=== PATIENT | male | born 1980 | race Caucasian/White ===

== ENCOUNTER 2018-01-29 18:06 | Emergency (ER) | payer BC ==
[2018-01-29] MEDS ORDERED: ASPIRIN 81 MG CHEWABLE TABLET PO ONE (18:31)
[2018-01-29] MEDS ORDERED: MAGNESIUM HYDROXIDE/AL HYDROX 30 ML, LIDOCAINE VISC 2% 15ML 15 ML PO ONE ×2 (18:31)
--- NOTE | 2018-01-29 18:33 | Emergency Department Record ---
History of Present Illness - General Chief Complaint: Chest Pain Stated Complaint: CHEST PAIN/TIGHTNESS Time Seen by Provider: 01/29/18 18:19 Source: Patient, RN notes reviewed Mode of Arrival: Ambulatory - History of Present Illness Initial Comments: chest pressure and bloating feeling and he had similiar episode last night and he took zantac and that helped last night . 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 seen alot of people and concerned about his symptoms and he drank 2 microbrew beers last night MD Complaint: Chest pain Pain Location: Substernal, Left chest, Right chest Pain Radiation: Back Severity: Moderate Severity scale (1-10): 6 Quality: Sharp Consistency: Intermittent Improves With: Nothing Worsens With: Nothing Treatments Prior to Arrival: None - Related Data Home Medications Medication Instructions Recorded Confirmed Last Taken Ranitidine HCl [Zantac] 150 mg PO DAILY 01/29/18 01/29/18 01/29/18 Allergies Allergy/AdvReac Type Severity Reaction Status Date / Time No Known Drug Allergies Allergy Verified 01/29/18 18:16 Travel Screening - Travel/Exposure Within Last 30 Days Have you traveled within the last 30 days?: No Review of Systems Reviewed: No additional complaints except as noted below Constitutional: Reports: As per HPI. Denies: Chills, Fever, Malaise, Night sweats, Weakness, Weight change Eyes: Reports: As per HPI. Denies: Eye discharge, Eye pain, Photophobia, Vision change ENT: Reports: As per HPI. Denies: Congestion, Dental pain, Ear pain, Epistaxis , Hearing loss, Throat pain Respiratory: Reports: As per HPI, Dyspnea. Denies: Cough, Hemoptysis, Stridor, Wheezes Cardiovascular: Reports: As per HPI, Chest pain. Denies: Arrhythmia, Dyspnea on exertion, Edema, Murmurs, Orthopnea, Palpitations, Paroxysmal nocturnal dyspnea, Rheumatic Fever, Syncope Endocrine: Reports: As per HPI. Denies: Fatigue, Heat or cold intolerance, Polydipsia, Polyuria Gastrointestinal: Reports: As per HPI. Denies: Abdominal pain, Constipation, Diarrhea, Hematemesis, Hematochezia, Melena, Nausea, Vomiting Genitourinary: Reports: As per HPI. Denies: Dysuria, Frequency, Hematuria, Incontinence, Retention, Testicular pain, Testicular mass, Urgency Musculoskeletal: Reports: As per HPI. Denies: Arthralgia, Back pain, Gout, Joint swelling, Myalgia, Neck pain Skin: Reports: As per HPI. Denies: Bruising, Change in color, Change in hair/ nails, Lesions, Pruritus, Rash Neurological: Reports: As per HPI. Denies: Abnormal gait, Confusion, Headache, Numbness, Paresthesias, Seizure, Tingling, Tremors, Vertigo, Weakness Psychiatric: Reports: As per HPI. Denies: Anxiety, Auditory hallucinations, Depression, Homicidal thoughts, Suicidal thoughts, Visual hallucinations Hematological/Lymphatic: Reports: As per HPI. Denies: Anemia, Blood Clots, Easy bleeding, Easy bruising, Swollen glands Past Medical History - SOCIAL HISTORY Smoking Status: Never smoker Alcohol Use: Occasional Drug Use: None - RESPIRATORY Hx Respiratory Disorders: No - CARDIOVASCULAR Hx Cardio Disorders: No - NEURO Hx Neuro Disorders: No - GI Hx GI Disorders: Yes Hx Reflux: Yes - Hx Genitourinary Disorders: No - ENDOCRINE Hx Endocrine Disorders: No - MUSCULOSKELETAL Hx Musculoskeletal Disorders: No - PSYCH Hx Psych Problems: No - HEMATOLOGY/ONCOLOGY Hx Hematology/Oncology Disorders: No Family Medical History Any Significant Family History?: No Physical Exam - General General Appearance: Alert, Oriented x3, Cooperative, Mild distress - Head Head exam: Normal inspection - Eye Eye exam: Normal appearance, PERRL Pupils: Normal accommodation - ENT ENT exam: Normal exam, Mucous membranes moist, Normal external ear exam, Normal orophraynx, TM's normal bilaterally Ear exam: Normal external inspection. negative: External canal tenderness Nasal Exam: Normal inspection. negative: Discharge, Sinus tenderness Mouth exam: Normal external inspection, Tongue normal Teeth exam: Normal inspection. negative: Dental caries Throat exam: Normal inspection. negative: Tonsillar erythema, Tonsillar exudate - Neck Neck exam: Normal inspection, Full ROM. negative: Tenderness - Respiratory Respiratory exam: Normal lung sounds bilaterally. negative: Respiratory distress - Cardiovascular Cardiovascular Exam: Regular rate, Normal rhythm, Normal heart sounds - GI/Abdominal GI/Abdominal exam: Soft, Normal bowel sounds. negative: Tenderness - Rectal Rectal exam: Deferred - exam: Deferred - Extremities Extremities exam: Normal inspection, Full ROM, Normal capillary refill. negative: Tenderness - Back Back exam: Reports: Normal inspection, Full ROM. Denies: Muscle spasm, Rash noted, Tenderness - Neurological Neurological exam: Alert, Normal gait, Oriented X3, Reflexes normal - Psychiatric Psychiatric exam: Normal affect, Normal mood - Skin Skin exam: Dry, Intact, Normal color, Warm Course Vital Signs 01/29/18 18:11 Temperature 97.8 F Pulse Rate 66 Respiratory 22 Rate Blood Pressure 177/116 Pulse Ox 100 - Reevaluation(s) Reevaluation #1: Turning over to Dr. Levin at 7 pm, labs and chest xray pending 01/29/18 18:53 01/29/18 19:06 Medical Decision Making - Data Complexity MDM Data: EKG Ordered and/or Reviewed (NSR, no acute changes) - Lab Data Result diagrams: 01/29/18 18:20 01/29/18 18:20 Disposition Clinical Impression: Chest pain Qualifiers: Chest pain type: unspecified Qualified Code(s): R07.9 - Chest pain, unspecified GERD (gastroesophageal reflux disease) Qualifiers: Esophagitis presence: without esophagitis Qualified Code(s): K21.9 - Gastro- esophageal reflux disease without esophagitis Forms: Patient Portal Access Quality - Quality Measures Quality Measures: N/A - Blood Pressure Screening Does Patient Have Any of the Following: No Blood Pressure Classification: Hypertensive Reading Systolic Measurement: 177 Diastolic Measurement: 116 Screening for High Blood Pressure: < First Hypertensive BP, F/U Documented > [ G8950] First Hypertensive Follow-up Interventions: Referral to alternative/primary care provider.
[2018-01-29] MEDS ORDERED: LORAZEPAM 2 MG/ML VIAL IV ONE (18:39)
[2018-01-29 18:41] LABS: BASO % 0.7 % (0-6); EOS % 2.5 % (0-6); GRAN % 38.7 % (47-80); HEMATOCRIT 43.3 % (42.0-52.0); HEMOGLOBIN 14.1 gm/dl (14.0-18.0); MEAN CELL VOLUME 88.5 fl (81-97); MEAN CORPUSCULAR HEMOGLOBIN 28.8 pg (27-33); MEAN CORPUSCULAR HGB CONC 32.6 g/dl (32-36); MEAN PLATELET VOLUME 10.6 fl (7.4-10.4); MONO % 12.1 % (0-9); PLATELET COUNT 314 K/uL (130-400); RED BLOOD COUNT 4.89 M/uL (4.40-5.70); RED CELL DISTRIBUTION WIDTH 13.8 % (11.5-14.5); WHITE BLOOD COUNT W/O DIFF 10.8 K/uL (4.2-12.2)
[2018-01-29 18:53] LABS: BLOOD UREA NITROGEN 14 mg/dL (6-20); CREATININE 0.9 mg/dL (0.7-1.2); EST GLOMERULAR FILTRATION RATE > 60 mL/min
[2018-01-29 18:56] LABS: GLUCOSE,RANDOM 105 mg/dL (74-109)
[2018-01-29 19:13] LABS: PARTIAL THROMBOPLASTIN TIME 25.5 SECONDS (24.5-39.1)
--- NOTE | 2018-01-29 19:43 | Emergency Department Record ---
History of Present Illness - General Chief Complaint: Chest Pain Stated Complaint: CHEST PAIN/TIGHTNESS Time Seen by Provider: 01/29/18 18:19 Source: Patient, RN notes reviewed Mode of Arrival: Ambulatory - History of Present Illness Initial Comments: Assumed care at 7 p.m. shift change due to pending labs. Patient states his pain is not 5/10 after his medications of ativan and GI cocktail. Pain Location: Substernal, Left chest, Right chest Pain Radiation: Back Severity: Moderate Severity scale (1-10): 6 Quality: Sharp Consistency: Intermittent Improves With: Nothing Worsens With: Nothing Treatments Prior to Arrival: None - Related Data Home Medications Medication Instructions Recorded Confirmed Last Taken Ranitidine HCl [Zantac] 150 mg PO DAILY 01/29/18 01/29/18 01/29/18 Allergies Allergy/AdvReac Type Severity Reaction Status Date / Time No Known Drug Allergies Allergy Verified 01/29/18 18:16 Travel Screening - Travel/Exposure Within Last 30 Days Have you traveled within the last 30 days?: No Review of Systems Reviewed: No additional complaints except as noted below Constitutional: Reports: As per HPI. Denies: Chills, Fever, Malaise, Night sweats, Weakness, Weight change Eyes: Reports: As per HPI. Denies: Eye discharge, Eye pain, Photophobia, Vision change ENT: Reports: As per HPI. Denies: Congestion, Dental pain, Ear pain, Epistaxis , Hearing loss, Throat pain Respiratory: Reports: As per HPI, Dyspnea. Denies: Cough, Hemoptysis, Stridor, Wheezes Cardiovascular: Reports: As per HPI, Chest pain. Denies: Arrhythmia, Dyspnea on exertion, Edema, Murmurs, Orthopnea, Palpitations, Paroxysmal nocturnal dyspnea, Rheumatic Fever, Syncope Endocrine: Reports: As per HPI. Denies: Fatigue, Heat or cold intolerance, Polydipsia, Polyuria Gastrointestinal: Reports: As per HPI. Denies: Abdominal pain, Constipation, Diarrhea, Hematemesis, Hematochezia, Melena, Nausea, Vomiting Genitourinary: Reports: As per HPI. Denies: Dysuria, Frequency, Hematuria, Incontinence, Retention, Testicular pain, Testicular mass, Urgency Musculoskeletal: Reports: As per HPI. Denies: Arthralgia, Back pain, Gout, Joint swelling, Myalgia, Neck pain Skin: Reports: As per HPI. Denies: Bruising, Change in color, Change in hair/ nails, Lesions, Pruritus, Rash Neurological: Reports: As per HPI. Denies: Abnormal gait, Confusion, Headache, Numbness, Paresthesias, Seizure, Tingling, Tremors, Vertigo, Weakness Psychiatric: Reports: As per HPI. Denies: Anxiety, Auditory hallucinations, Depression, Homicidal thoughts, Suicidal thoughts, Visual hallucinations Hematological/Lymphatic: Reports: As per HPI. Denies: Anemia, Blood Clots, Easy bleeding, Easy bruising, Swollen glands Past Medical History - SOCIAL HISTORY Smoking Status: Never smoker Alcohol Use: Occasional Drug Use: None - RESPIRATORY Hx Respiratory Disorders: No - CARDIOVASCULAR Hx Cardio Disorders: No - NEURO Hx Neuro Disorders: No - GI Hx GI Disorders: Yes Hx Reflux: Yes - Hx Genitourinary Disorders: No - ENDOCRINE Hx Endocrine Disorders: No - MUSCULOSKELETAL Hx Musculoskeletal Disorders: No - PSYCH Hx Psych Problems: No - HEMATOLOGY/ONCOLOGY Hx Hematology/Oncology Disorders: No Family Medical History Any Significant Family History?: No Physical Exam - General General Appearance: Alert, Oriented x3, Cooperative, No acute distress - Head Head exam: Normal inspection - Eye Eye exam: Normal appearance, PERRL Pupils: Normal accommodation - ENT ENT exam: Normal exam, Mucous membranes moist, Normal external ear exam, Normal orophraynx, TM's normal bilaterally Ear exam: Normal external inspection. negative: External canal tenderness Nasal Exam: Normal inspection. negative: Discharge, Sinus tenderness Mouth exam: Normal external inspection, Tongue normal Teeth exam: Normal inspection. negative: Dental caries Throat exam: Normal inspection. negative: Tonsillar erythema, Tonsillar exudate - Neck Neck exam: Normal inspection, Full ROM. negative: Tenderness - Respiratory Respiratory exam: Normal lung sounds bilaterally. negative: Respiratory distress - Cardiovascular Cardiovascular Exam: Regular rate, Normal rhythm, Normal heart sounds - GI/Abdominal GI/Abdominal exam: Soft, Normal bowel sounds. negative: Tenderness - Rectal Rectal exam: Deferred - exam: Deferred - Extremities Extremities exam: Normal inspection, Full ROM, Normal capillary refill. negative: Tenderness - Back Back exam: Reports: Normal inspection, Full ROM. Denies: Muscle spasm, Rash noted, Tenderness - Neurological Neurological exam: Alert, Normal gait, Oriented X3, Reflexes normal - Psychiatric Psychiatric exam: Normal affect, Normal mood - Skin Skin exam: Dry, Intact, Normal color, Warm Course Vital Signs 05/26/18 18:11 Temperature 97.8 F Pulse Rate 66 Respiratory 22 Rate Blood Pressure 177/116 Pulse Ox 100 - Reevaluation(s) Reevaluation #1: 01/29/18 19:43 Reviewed all results with patient, all questions answered. Explained plan to repeat troponin in 4 hours and do CTA. Patient has no contrast allergy, understands, and agrees. BP is normalizing, chest discomfort has decreased to 3- 4/10. Reviewing his history: he had two similar episodes of chest pain through to the back with indigestion. The first was around 4 a.m. when in bed, and the second was after eating microwaves cheesy rice around 6:30 which was 8-9 /10 severity substernal through to the back with indigestion, SOB, and urge to belch but couldn't. He states the ativan helped most, but the GI cocktail may also have helped. He states he used to take a tiny blood pressure pill but stopped when he began working out and getting more in shape. He denies FH of Mi , or sudden and has no other risk factors. 01/29/18 19:44 01/29/18 19:47 Reevaluation #2: 01/29/18 20:47 Repeat troponin scheduled for 2214. Reevaluation #3: Patient is relaxed and without symptoms now. Repeat troponin is also normal as before. Will have him finish his heart work-up as an out patient. 01/29/18 22:41 Medical Decision Making - Management Options MDM Management: Additional Work-up Planned (e.g. ADM/Transfer/OP Study) (PCP referral and out patient heart work up though PCP.) - Data Complexity MDM Data: Labs Ordered and/or Reviewed, X-Ray Ordered and/or Reviewed (CTA Chest Neg for PE, dissection, aneurysm or other abnormaltiy. CXR Neg. ), EKG Ordered and/or Reviewed (No acute changes.) - Lab Data Result diagrams: 01/29/18 18:20 01/29/18 18:20 Lab Results 01/29/18 01/29/18 01/29/18 Range/Units 18:20 18:20 18:20 WBC 10.8 (4.2-12.2) K/uL RBC 4.89 (4.40-5.70) M/uL Hgb 14.1 (14.0-18.0) gm/dl Hct 43.3 (42.0-52.0) % MCV 88.5 (81-97) fl MCH 28.8 (27-33) pg MCHC 32.6 (32-36) g/dl RDW 13.8 (11.5-14.5) % Plt Count 314 (130-400) K/uL MPV 10.6 H (7.4-10.4) fl Gran % 38.7 L (47-80) % Lymphocytes % 46.0 H (16-45) % Monocytes % 12.1 H (0-9) % Eosinophils % 2.5 (0-6) % Basophils % 0.7 (0-6) % APTT 25.5 (24.5-39.1) SECONDS D-Dimer 0.19 (0-0.59) mg/L FEU Sodium 144 (136-145) mmol/L Potassium 4.2 (3.4-4.5) mmol/L Chloride 103 (98-107) mmol/L Carbon Dioxide 27.0 (22-29) mmol/L Anion Gap 14.0 (7-16) BUN 14 (6-20) mg/dL Creatinine 0.9 (0.7-1.2) mg/dL Estimated GFR > 60 mL/min Random Glucose 105 (74-109) mg/dL Calcium 12.0 H (8.6-10.0) mg/dL Troponin T < 0.010 (0-0.010) ng/mL Disposition Disposition: Discharge Clinical Impression: Chest pain Qualifiers: Chest pain type: unspecified Qualified Code(s): R07.9 - Chest pain, unspecified GERD (gastroesophageal reflux disease) Qualifiers: Esophagitis presence: without esophagitis Qualified Code(s): K21.9 - Gastro- esophageal reflux disease without esophagitis Disposition: Home, Self-Care Condition: (1) Good Instructions: Chest Pain (ED), Gastroesophageal Reflux Disease (ED), Esophageal Spasm (ED) Additional Instructions: Hold off on running until seen by PCP for remainder of cardiac work up as out patient. Check and record your blood pressure and bring it to your PCP. Call PCP referral list Wednesday to schedule out patient cardiac workup and follow up for your blood pressure. Referrals: NIKKY DAVISON [MEDICAL DOCTOR] - Forms: Patient Portal Access Quality - Quality Measures Quality Measures: N/A - Blood Pressure Screening Does Patient Have Any of the Following: No Blood Pressure Classification: Hypertensive Reading Systolic Measurement: 177 Diastolic Measurement: 116 Screening for High Blood Pressure: < First Hypertensive BP, F/U Documented > [ G8950] First Hypertensive Follow-up Interventions: Follow-up with rescreen GT 1 day and LT 4 weeks.
--- NOTE | 2018-02-01 10:30 | RADIOLOGY REPORT ---
EXAM: CHEST HISTORY: CHEST PAIN, SHORTNESS OF BREATH ON INSPIRATION FOR ONE DAY. TECHNIQUE: Two views of the chest were obtained. Comparison: None. FINDINGS: The heart is not enlarged and there is no mediastinal mass. There is no acute infiltrate or vascular congestion. Incidental note is made of an azygos fissure in the right upper lung. IMPRESSION: NO ACUTE CARDIAC OR PULMONARY ABNORMALITY. . JOB NUMBER: [id number] MTDD
--- NOTE | 2018-02-01 11:02 | CT ANGIOGRAM REPORT ---
EXAM: CT ANGIOGRAPHY OF THE THORAX HISTORY: CHEST PAIN. TECHNIQUE: CT angiography of the thorax with post processing was performed. Coronal and sagittal post processed MIP images are performed on an independent workstation as part of this examination. The amount and type of contrast are recorded in the medical record. Comparison: Chest x-ray 01/29/18. FINDINGS: No pulmonary emboli are seen. No aortic aneurysm or aortic dissection. The heart is not enlarged and there is no pericardial effusion. No area of lung consolidation. No pleural effusion. No infiltrate or lung nodule identified. An azygos fissure is present in the right upper lung which is a normal variation. No mediastinal or hilar mass or adenopathy identified. Limited upper abdominal images are unremarkable. IMPRESSION: UNREMARKABLE CT ANGIOGRAPHY OF THE THORAX. NO ACUTE PROCESS IDENTIFIED. NO PULMONARY EMBOLI SEEN. JOB NUMBER: [id number] MTDD
== END 2018-01-29 23:03 | disposition home or self-care (01) ==
LOC: ER 18:06
DX: K21.9 Gastro-esophageal reflux disease without esophagitis (principal); R07.89 Other chest pain
CPT/HCPCS: 99284 ×2; 96374; 85025; 85730; 80048; 84484; 85379; 71046; 71275; 93005; 93010; Q9967; J2060; J3490

== ENCOUNTER 2019-07-08 04:30 | Emergency (ER) | payer BC ==
[2019-07-08] MEDS ORDERED: KETOROLAC 30 MG/ML VIAL IVP ONE (04:52)
--- NOTE | 2019-07-08 04:58 | Emergency Department Record ---
History of Present Illness - General Chief Complaint: Abdominal Pain Stated Complaint: ABD PAIN Time Seen by Provider: 07/08/19 04:52 Source: Patient Mode of Arrival: Ambulatory Limitations: No limitations - History of Present Illness Initial Comments: 38 yo male presents to ED for evaluation of RUQ abdominal pain symptoms that began approximately 6 hours ago. Patient denies nausea, vomiting, pain with deep inspiration, cough, or recent illness. Patient reports previous history of similar symptoms that resolved over several hours, denies known cause. Patient denies health problems at his baseline, denies previous abdominal surgery. Patient denies calf pain, swelling, recent immobilization, or history of DVT. MD Complaint: Abdominal pain Onset/Timin -: Hour(s) Location: RUQ Radiation: Bilateral flank Migration to: Bilateral flank Severity: Moderate Severity scale (1-10): 7 Quality: Aching Consistency: Constant, Getting worse Improves With: Rest, Other Worsens With: Movement Associated Symptoms: Denies other symptoms, Constipation - Related Data Allergies Allergy/AdvReac Type Severity Reaction Status Date / Time No Known Drug Allergies Allergy Unverified 04/13/19 09:32 Travel Screening - Travel/Exposure Within Last 30 Days Have you traveled within the last 30 days?: Yes Location Detail:: [place] - Travel/Exposure Within Last Year Have you traveled outside the [place] in the last year?: No - Additonal Travel Details Have you been exposed to anyone with a communicable illness?: No - Travel Symptoms Symptom Screening: Stomach Pain Review of Systems Constitutional: Denies: Chills, Fever, Malaise, Night sweats Eyes: Denies: Eye discharge, Eye pain ENT: Denies: Congestion, Ear pain, Epistaxis Respiratory: Denies: Cough, Dyspnea Cardiovascular: Denies: Chest pain, Dyspnea on exertion Endocrine: Denies: Fatigue, Heat or cold intolerance Gastrointestinal: Denies: Abdominal pain, Nausea, Vomiting Genitourinary: Denies: Incontinence, Retention Musculoskeletal: Denies: Arthralgia, Back pain, Gout, Joint swelling Skin: Denies: Bruising, Change in color Neurological: Denies: Abnormal gait, Confusion, Headache, Seizure Psychiatric: Denies: Anxiety Hematological/Lymphatic: Denies: Anemia, Blood Clots Past Medical History - SOCIAL HISTORY Smoking Status: Never smoker Alcohol Use: Occasional Drug Use: None - RESPIRATORY Hx Respiratory Disorders: No - CARDIOVASCULAR Hx Cardio Disorders: Yes Hx Hypertension: Yes - NEURO Hx Neuro Disorders: No - GI Hx GI Disorders: Yes Hx Reflux: Yes - Hx Genitourinary Disorders: No - ENDOCRINE Hx Endocrine Disorders: Yes Comment:: hyperparathyroidism - MUSCULOSKELETAL Hx Musculoskeletal Disorders: No - PSYCH Hx Psych Problems: No - HEMATOLOGY/ONCOLOGY Hx Hematology/Oncology Disorders: Yes Hx Cancer: Yes (non-Hodkins's lymphoma) Hx Chemotherapy: Yes Hx Radiation Therapy: No Family Medical History Any Significant Family History?: No Family Hx Comment (NOT TO BE USED IN PLACE OF ITEMS BELOW): denies Physical Exam - General General Appearance: Alert, Oriented x3, Cooperative, Mild distress Limitations: No limitations - Head Head exam: Atraumatic, Normocephalic, Normal inspection Head exam detail: negative: Abrasion, Contusion, Perez's sign, General tenderness, Hematoma, Laceration - Eye Eye exam: Normal appearance. negative: Conjunctival injection, Periorbital swelling, Periorbital tenderness, Scleral icterus - ENT Ear exam: negative: Auricular hematoma, Auricular trauma Nasal Exam: negative: Active bleeding, Discharge, Dried blood, Foreign body Mouth exam: negative: Drooling, Laceration, Muffled voice, Tongue elevation - Neck Neck exam: Normal inspection. negative: Meningismus, Tenderness - Respiratory Respiratory exam: Normal lung sounds bilaterally. negative: Rales, Respiratory distress, Rhonchi, Stridor - Cardiovascular Cardiovascular Exam: Regular rate, Normal rhythm, Normal heart sounds - GI/Abdominal GI/Abdominal exam: Soft, Tenderness (Mild TTP RUQ, no rebound or guarding present, no peritoneal signs are present on examination.). negative: Rebound, Rigid - Rectal Rectal exam: Deferred - exam: Deferred - Extremities Extremities exam: Normal inspection. negative: Pedal edema, Tenderness - Back Back exam: Denies: CVA tenderness (R), CVA tenderness (L) - Neurological Neurological exam: Alert, Normal gait, Oriented X3 - Psychiatric Psychiatric exam: Normal affect, Normal mood - Skin Skin exam: Normal color. negative: Abrasion Type of lesion: negative: abrasion Course Vital Signs 07/08/19 04:35 Temperature 98.5 F Pulse Rate 95 H Respiratory 18 Rate Blood Pressure 158/112 Pulse Ox 98 - Reevaluation(s) Reevaluation #1: 07/08/19 06:07 Laboratory studies were reviewed and appear grossly unremarkable for an acute process. CT Abdomen and Pelvis: Stone within the neck of the gallbladder Normal appendix Patient was reassessed and updated on all results, reports that his pain symptoms are improved from 8/10 to about 4/10. Patient appears stable for discharge with instructions to follow-up with Dr. Krishnan Wednesday as directed. Medical Decision Making - Lab Data Result diagrams: 07/08/19 05:00 07/08/19 05:00 Disposition Disposition: Discharge Clinical Impression: Abdominal pain Qualifiers: Abdominal location: right upper quadrant Qualified Code(s): R10.11 - Right uppe r quadrant pain Cholelithiasis Qualifiers: Cholelithiasis location: gallbladder Cholecystitis presence: without cholecystitis Biliary obstruction: without biliary obstruction Qualified Code(s): K80.20 - Calculus of gallbladder without cholecystitis without obstruction Disposition: Home, Self-Care Condition: (2) Stable Instructions: Abdominal Pain (ED) Additional Instructions: Return to ED if your symptoms worsen or if you have any concerns. (medication) as directed. Follow-up with Dr. Krishnan Wednesday as directed. Referrals: Kehinde Krishnan [DOCTOR OF OSTEOPATH] - [facility] [Provider Group] Forms: Patient Portal Access Time of Disposition: 06:14 Quality - Quality Measures Quality Measures: N/A - Blood Pressure Screening Does Patient Have Any of the Following: No Blood Pressure Classification: Hypertensive Reading Systolic Measurement: 158 Diastolic Measurement: 112 Screening for High Blood Pressure: < First Hypertensive BP, F/U Documented > [G8950] First Hypertensive Follow-up Interventions: Referral to alternative/primary care provider.
[2019-07-08] MEDS ORDERED: 0.9 % SODIUM CHLORIDE 1000ML 1,000 ML IV SCH (05:00)
[2019-07-08 05:09] LABS: ABSOLUTE NEUTROPHIL COUNT 4.66; BASO % 0.8 % (0-6); EOS % 1.9 % (0-6); GRAN % 55.7 % (47-80); HEMATOCRIT 41.7 % (42.0-52.0); HEMOGLOBIN 13.5 gm/dl (14.0-18.0); LYMPH % 29.8 % (16-45); MEAN CELL VOLUME 84.1 fl (81-97); MEAN CORPUSCULAR HEMOGLOBIN 27.2 pg (27-33); MEAN CORPUSCULAR HGB CONC 32.4 g/dl (32-36); MEAN PLATELET VOLUME 9.4 fl (7.4-10.4); MONO % 11.8 % (0-9); PLATELET COUNT 330 K/uL (130-400); RED BLOOD COUNT 4.96 M/uL (4.40-5.70); RED CELL DISTRIBUTION WIDTH 13.8 % (11.5-14.5); WHITE BLOOD COUNT W/O DIFF 8.4 K/uL (4.2-12.2)
[2019-07-08 05:10] LABS: URINE APPEARANCE CLEAR; URINE BILIRUBIN NEGATIVE (NEGATIVE); URINE BLOOD NEGATIVE (NEGATIVE); URINE COLOR YELLOW; URINE GLUCOSE (UA) NEGATIVE (NEGATIVE); URINE KETONE NEGATIVE (NEGATIVE); URINE LEUKOCYTE ESTERASE NEGATIVE (NEGATIVE); URINE NITRITE NEGATIVE (NEGATIVE); URINE PROTEIN NEGATIVE (NEGATIVE); URINE UROBILINOGEN 0.2 E.U./dL (0.20 - 1.00)
[2019-07-08 05:22] LABS: BLOOD UREA NITROGEN 16 mg/dL (6-20); CREATININE 0.9 mg/dL (0.7-1.2); EST GLOMERULAR FILTRATION RATE > 60 mL/min; LIPASE 24 U/L (13-60); TOTAL PROTEIN 7.5 g/dL (6.6-8.7)
[2019-07-08 05:24] LABS: GLUCOSE,RANDOM 119 mg/dL (74-109)
[2019-07-08 05:27] LABS: ALB/GLOB RATIO 1.7 (1.1-1.8); ALBUMIN 4.7 g/dL (4.0-5.0); ALKALINE PHOSPHATASE 42 U/L (40-129); ALT/SGPT 25 U/L (<41); AST/SGOT 19 U/L (10.0-50.0)
--- NOTE | 2019-07-08 05:54 | CT SCAN REPORT ---
EXAMINATION: CT Abdomen and Pelvis with IV Contrast EXAM DATE: 07/08/2019 5:48 AM TECHNIQUE: CT imaging of the abdomen and pelvis was performed with intravenous contrast. Coronal and sagittal images were reconstructed. IV Contrast: The amount and type of contrast are recorded in the medical record. INDICATION: RUQ pain COMPARISON: None ENCOUNTER: Not applicable CT ABDOMEN AND PELVIS FINDINGS: Lung Bases: Included extent of the lung bases are clear. Hepatobiliary: The liver has a normal size with a smooth surface. The hepatic and portal veins appear patent. Cholelithiasis without ductal dilatation there appears to be a stone in the gallbladder nec k/cystic duct Pancreas: The pancreas is normal. Spleen: The spleen is not enlarged. Adrenals: The adrenal glands are normal. Gastrointestinal: The stomach and small bowel are normal with no obstruction or inflammation. The dominga endix is visualized and appears normal The large bowel is normal. Reproductive Organs: Unremarkable Lymphatic System: There is no adenopathy within the abdomen or pelvis. Vasculature: Normal caliber abdominal aorta. Peritoneum: No free fluid, free air, or inflammation IMPRESSION: Cholelithiasis without ductal dilatation. There appears to be a stone in the gallbladder neck/cystic duct. The appendix is visualized and appears normal Dictated by: Vee Patterson DO on 07/08/2019 5:50 AM. .
== END 2019-07-08 06:23 | disposition home or self-care (01) ==
LOC: ER 04:30
DX: K80.20 Calculus of gallbladder without cholecystitis without obstruction (principal); I10 Essential (primary) hypertension; R10.11 Right upper quadrant pain
CPT/HCPCS: 99284 ×2; 96374; 83690; 85025; 80053; 81003; 74177; Q9967; J1885; J7030

== ENCOUNTER → 2019-07-17 | Day surgery (SDC) | payer BC ==
[~2019-07-17] MED LIST: ACETAMINOPHEN 1,000 MG/100 ML BTL IVPB ONE; BUPIVACAINE 0.25% W/EPI MPF 30ML VIAL SQ ONE; DEXAMETHASONE 4 MG/ML 1ML VIAL IVP ONE; FAMOTIDINE 20MG TABLET PO ONE; FENTANYL CITRATE/PF (PACU) 50 MCG/ML VIAL IV ONE; HYDROCODONE/APAP 5/325MG TABLET PO ONE; KETOROLAC 30 MG/ML VIAL IVP ONE; LIDOCAINE 2% MDV (20MG/ML) 20ML VIAL IV ONE; MECLIZINE 25 MG TABLET PO ONE; METOCLOPRAMIDE 10 MG TABLET PO ONE; MIDAZOLAM HCL 2MG/2ML VIAL IV ONE; ONDANSETRON HCL IV 4 MG/2 ML VIAL IVP ONE; PROPOFOL 10 MG/ML VIAL IV ONE; RINGERS SOLUTION,LACTATED 1,000 ML IV ONE; ROCURONIUM BROMIDE 50MG/5ML VIAL IV ONE; SEVOFLURANE 250 ML INH ONE; SUGAMMADEX SODIUM 200 MG/2 ML VIAL IV ONE
[2019-07-17] MEDS: FENTANYL PF 100MCG/2ML VIAL IVP PRN ×2 (11:03→11:07)
--- NOTE | 2019-07-18 12:40 | Operative Note ---
DATE OF SURGERY: 07/17/2019 SURGEON: Kehinde Krishnan DO PREOPERATIVE DIAGNOSIS: Cholelithiasis with chronic cholecystitis. POSTOPERATIVE DIAGNOSIS: Cholelithiasis with chronic cholecystitis. OPERATION: Laparoscopic cholecystectomy. INDICATION: The patient is a 38-year-old male who was having some ongoing right subcostal postprandial pain. He was seen in the ER where workup was done. This did show findings consistent with chronic cholecystitis. He did have a stone stuck in the cystic duct. We did discuss cholecystectomy. Risks, benefits, and alternatives were discussed. Risks include but are not limited to bleeding, infection, ductal injury, possible conversion to open, postoperative bile leak. He understood this fully. PROCEDURE: Thereafter, consent was signed and questions answered. He was taken to the operating room and placed in a supine position. General anesthesia was administered per the department of anesthesia. The patient's abdomen was prepped and draped in the usual sterile fashion. At this time, adequate timeout was performed. He did receive preoperative antibiotic as well as DVT prophylaxis. At this time, the infraumbilical region was anesthetized with a total of 5 mL of 0.25% Sensorcaine with epinephrine. A 2 cm infraumbilical incision was made. This was carried down bluntly to the anterior rectus fascia. This was incised. Chris clamps were placed on the fascial edges and brought up into the wound. Stay sutures of 0 Vicryl were placed. Posterior rectus sheath was identified and incised. The peritoneal cavity was entered bluntly. At this time, a 10 mm blunt Boy port was placed. Adequate pneumoperitoneum was established. Under direct visualization, additional 5 mm epigastric and two 5 mm right subcostal ports were placed. The gallbladder was identified in the subhepatic space. It was noted to be thickened and inflamed, full of stones. This was retracted in a cephalad and lateral direction opening up the angle of Calot. The hepatocystic triangle was thoroughly dissected out. There was no aberrant anatomy, no posterior ductal structures. The cystic duct and cystic artery were clearly identified. Each one was doubly clipped and cut in a standard fashion. Gallbladder was then taken off the liver bed with ANGEL Harmonic. This was then extracted through the umbilical port. Right upper quadrant was rechecked and found to be hemostatic. No bleeding. No bile leaking. No bowel injury noted. The patient was leveled out. The pneumoperitoneum was released. All ports were removed. The fascia was closed with 0 Vicryl in a [id number] fashion. The skin at all ports was closed with 4-0 Vicryl. The patient was taken to the recovery room in stable condition. FINDINGS AT THE TIME OF SURGERY: Chronic cholecystitis. MTDD
== END | disposition home or self-care (01) ==
LOC: SUR 07:35
PROVIDERS: ATTEND Surgery
DX: K80.10 Calculus of gallbladder with chronic cholecystitis without obstruction (principal); I10 Essential (primary) hypertension; K21.9 Gastro-esophageal reflux disease without esophagitis; C85.90 Non-Hodgkin lymphoma, unspecified, unspecified site
CPT/HCPCS: J1885; J2405; J3490; J7120